=== PATIENT | male | born 1965 ===

== ENCOUNTER 2025-03-18 16:41 | Emergency (ER) | payer OTHER ==
[~2025-03-18] VITALS: Ht 167.6 cm; Wt 82.7 kg
[2025-03-18 16:53] VITALS: BP 161/82; PULSE 58; RESP 18; TEMP 97.3; O2SAT 96
[2025-03-18] MEDS: ONDANSETRON 4 MG TABLET PO ONE (17:35)
[2025-03-18] MEDS ORDERED: ONDA-104 PO (18:31)
== END 2025-03-18 18:54 | disposition home or self-care (01) ==
LOC: EMS 16:41
DX: R11.2 Nausea with vomiting, unspecified (principal); I10 Essential (primary) hypertension
CPT/HCPCS: 99283; Q0162